=== PATIENT | female | born 1965 ===

== ENCOUNTER → 2025-02-01 14:28 | Outpatient (CLI) | payer OTHER, SELFPAY ==
--- NOTE | 2025-02-01 14:30 | DI.MG.S_ITS ---
MM screening mammo BI: 02/01/2025. BI-RADS: 1 CLINICAL: 59-year old female for bilateral screening mammogram. Tyrer-Cuzick lifetime risk of 25.1%. Current reported family history of breast cancer: mother, sister and second sister. PRIOR EXAMS Outside priors 01/31/2014, 12/28/2011, 03/21/2009, and 04/08/2007. MAMMOGRAPHY TECHNIQUE: 2D and 3D (tomosynthesis) digital mammographic views obtained, with additional images as needed for full coverage. Current study was also evaluated with a Computer Aided Detection (CAD) system. DENSITY C. The breasts are heterogeneously dense, which may obscure small masses. MAMMOGRAPHY FINDINGS Bilateral: No suspicious mass, asymmetry, microcalcification, or other abnormality seen. IMPRESSION: * No evidence of malignancy. RECOMMENDATIONS Bilateral * According to the Tyrer-Cuzick Risk Assessment Model, based on the information provided your patient has a greater than 20% lifetime risk for developing breast cancer. Consider supplemental screening with breast MRI and participation in a high risk screening program. * Annual screening mammography. OVERALL ASSESSMENT CATEGORY BI-RADS-1: Negative. The [employer] recommends annual screening mammography beginning at age 40 for women with average risk of breast cancer. ELECTRONICALLY SIGNED: Delmi Sanford M.D. on 02/02/2025 at 12:05:01 PM PT Interpreting Station ID: [id number]
== END ==
PROVIDERS: PCP Physician Assistant Medical; Referring Provider Physician Assistant Medical; Visit Provider Physician Assistant Medical
DX: Z12.31 Encounter for screening mammogram for malignant neoplasm of breast (principal); Z80.3 Family history of malignant neoplasm of breast; R92.333 Mammographic heterogeneous density, bilateral breasts
CPT/HCPCS: 77063; 77067

== ENCOUNTER → 2025-02-23 06:59 | Outpatient (CLI) | payer OTHER, SELFPAY ==
--- NOTE | 2025-02-23 07:00 | DI.US.S_ITS ---
PROCEDURE: US SOFT TISSUE HEAD AND NECK INDICATIONS: RIGHT POSTERIOR EAR MASS TECHNIQUE: Real-time scanning was performed of the neck region of interest, with image documentation. COMPARISON: None. FINDINGS: At the area of concern within the inferior aspect the parotid gland there is a 1.1 cm lymph node.. No other mass lesions are identified. IMPRESSION: Borderline enlarged lymph node, nonspecific. Dictated by: Anne Maldonado M.D. on 02/25/2025 at 19:43 Approved by: Anne Maldonado M.D. on 02/25/2025 at 19:44
== END ==
PROVIDERS: PCP Physician Assistant; Referring Provider Physician Assistant; Visit Provider Physician Assistant
DX: R22.0 Localized swelling, mass and lump, head (principal)
CPT/HCPCS: 76536

== ENCOUNTER → 2025-07-09 14:56 | Outpatient (CLI) | payer OTHER, SELFPAY | PROVIDERS: PCP Physician Assistant; Visit Provider Physician Assistant | DX: R35.0 Frequency of micturition (principal); R30.0 Dysuria; R82.90 Unspecified abnormal findings in urine | CPT/HCPCS: 87077; 87086; 87186 ==

== ENCOUNTER 2025-07-16 13:31 | Observation (INO) | payer OTHER, SELFPAY ==
[2025-07-16] VITALS (19 sets, daily range): BP systolic 98–142; BP diastolic 63–87; PULSE 73–103; RESP 12–32; TEMP 36.6–36.9; O2SAT 97–100; BMI 22.8
--- NOTE | 2025-07-16 | DI.CT.S_ITS ---
PROCEDURE: CT ANGIO HEAD AND NECK INDICATIONS: STROKE TECHNIQUE: After the administration of intravenous contrast, 1 mm thick sections acquired from the aortic arch through the [place] of [place]. 3-dimensional sekttnp-uzgqfoktx-fmmaqpkkus (MIP) and/or volume rendering reformats were acquired of the central intracranial vasculature and neck separately. For radiation dose reduction, the following was used: automated exposure control, adjustment of mA and/or kV according to patient size. COMPARISON: [facility], CT, CT STROKE, 07/16/2025, 13:59. FINDINGS: Image quality: Diagnostic. Cerebral CT Angiogram: Internal carotid arteries: No acute findings. Intracranial ICA are patent with no significant stenosis. No occlusion. No aneurysm. Anterior cerebral arteries: Unremarkable. No significant stenosis. No occlusion. No aneurysm. Middle cerebral arteries: Unremarkable. No significant stenosis. No occlusion. No aneurysm. Posterior cerebral arteries: Unremarkable. No significant stenosis. No occlusion. No aneurysm. Basilar artery: Unremarkable. No significant stenosis. No occlusion. No aneurysm. Vertebral arteries: Unremarkable as visualized. Dural venous sinuses: Unremarkable given phase of enhancement. Other: Please see the separately dictated report from the noncontrast CT of the head performed at the same time. No abnormal intracranial arterial-phase enhancement. Neck CT Angiogram: Internal carotid arteries: Unremarkable. No significant stenosis. No dissection or occlusion. Common carotid arteries: Unremarkable. No significant stenosis. No dissection or occlusion. External carotid arteries: Unremarkable. No occlusion. Vertebral arteries: Unremarkable. No significant stenosis. No dissection or occlusion. Aortic Arch and Mediastinum: Partially visualized aortic arch unremarkable without evidence of aneurysm. Origins of the great vessels unremarkable. Other: Heterogeneous enhancing right-sided thyroid nodule. IMPRESSION: No significant intracranial arterial abnormality is seen. No significant abnormality is seen within the arteries of the neck. Right thyroid nodule is indeterminate. Recommend follow-up outpatient thyroid ultrasound for further evaluation. Any quantitative measurements of stenosis were performed using NASCET criteria. Approved by: Chris Tellez M.D. on 07/16/2025 at 14:20
--- NOTE | 2025-07-16 | DI.CT.S_ITS ---
PROCEDURE: CT STROKE INDICATIONS: STROKE TECHNIQUE: Noncontrast 4.5 mm thick angled axial sections acquired from the foramen magnum to the vertex, with coronal reformats. For radiation dose reduction, the following was used: automated exposure control, adjustment of mA and/or kV according to patient size. COMPARISON: None. FINDINGS: Image quality: Diagnostic. CSF spaces: Basal cisterns are patent. No extra-axial fluid collections. Ventricles are normal in size and shape. Brain: No midline shift. No intracranial mass effect or hemorrhage. Munoz- white matter interface is normal. Skull and face: Calvarium and visualized facial bones are intact, without suspicious lesions. Sinuses: Visualized sinuses and mastoids are clear. IMPRESSION: No acute intracranial pathology. Findings were discussed with the referring provider, Dr. Mcgraw, by telephone on 07/16/2025 at 2:13 PM. This study fulfills neurological imaging criteria for inclusion or exclusion of acute stroke therapies based on available published neurological imaging guidelines. Approved by: Chris Tellez M.D. on 07/16/2025 at 14:14
--- NOTE | 2025-07-16 14:08 | EKG_ITS ---
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
--- NOTE | 2025-07-16 14:12 | ED_ITS ---
HPI - Neuro Symptoms/Deficit <Loraine Mcgraw DO - Last Filed: 07/17/25 07:36> General Chief Complaint: Neuro Symptoms/Deficit Stated Complaint: Numbness on left side, headache Time Seen by Provider: 07/16/25 14:10 Source: patient Mode of arrival: Ambulatory History of Present Illness On Anticoagulants: No Related Data Home Medications ?Medication ?Instructions ?Recorded ?Confirmed doxycycline hyclate 100 mg tablet 100 mg PO BID 07/16/25 nitrofurantoin 1 cap PO BID 07/16/25 monohydrate/macrocrystals 100 mg capsule Allergies Allergy/AdvReac Type Severity Reaction Status Date / Time erythromycin base Allergy Intermediate Hives Verified 07/16/25 22:30 nitrofurantoin AdvReac Intermediate Fatigued Verified 07/16/25 22:30 <Aydee Montanez PA-C - Last Filed: 07/16/25 16:56> History of Present Illness HPI Narrative: Ms. Small is a pleasant 60-year-old female with no reported past medical history who presents to the emergency department for concern of left-sided face/arm/leg tingling that started at 10:30 a.m. this morning. Patient actually had bilateral arm tingling that started on Wednesday of last week. Patient was started on Macrobid for UTI, took 4 doses in total, was then switched from Macrobid to doxycycline on Wednesday due to her concern that the tingling could be related to the antibiotic. Her bilateral arm tingling persisted however this morning and actually became more left-sided and she was also noticing some tingling on her face and her lower leg. She called EMS where she lives on [facility] and chose to go by POV on the [place]. States that she has a mild headache. Denies any visual disturbance, chest pain, shortness of breath, fevers, chills, flu-like symptoms, UTI symptoms are improving. She does not smoke. Reports that her father did have a stroke when he was 95 years old. Denies any daily medications. Review of Systems <Loraine Mcgraw DO - Last Filed: 07/17/25 07:36> Hematologic/Lymphatic On Anticoagulants: No <Aydee Montanez PA-C - Last Filed: 07/16/25 16:56> Review of Systems ROS Unobtainable: All systems reviewed & are unremarkable except as noted in HPI and below Patient History <Loraine Mcgraw DO - Last Filed: 07/17/25 07:36> Social History household members: none Smoking Status: Never smoker alcohol intake: current Smoking Status: Never smoker Exam <Loraine Mcgraw DO - Last Filed: 07/17/25 07:36> Initial Vital Signs Initial Vital Signs: Vital Signs Temperature 98 F 07/16/25 13:37 Pulse Rate 103 H 07/16/25 13:37 Respiratory Rate 18 07/16/25 13:37 Blood Pressure 140/77 07/16/25 13:37 Pulse Oximetry 100 07/16/25 13:37 Oxygen Delivery Method Room Air 07/16/25 13:37 <Aydee Montanez PA-C - Last Filed: 07/16/25 16:56> Narrative Exam Narrative: GENERAL: 60 year old patient appears stated age. Well-developed patient, in no acute distress. HEAD: Atraumatic. Normocephalic. EYES: PERRL. Extraocular motions intact. No scleral icterus. No injection or drainage. ENT: Clear ear canals and pearly mcdowell TMs bilaterally. Nose without bleeding, purulent drainage. Throat without erythema, tonsillar hypertrophy or exudate. Airway patent. NECK: Trachea midline. Cervical ROM intact. CARDIOVASCULAR: Regular rate and rhythm. RESPIRATORY: ?Nonlabored respirations. ?Speaking in clear, full sentences. ?Clear to auscultation. Breath sounds equal bilaterally. No wheezes, rales, or rhonchi. ? GASTROINTESTINAL: Abdomen soft, non-tender, nondistended. EXTREMITIES: No edema or joint tenderness. BACK: Nontender without deformity or crepitance. No flank tenderness. NEURO: AOx3. ?Clear speech. ?Moves all 4 extremities appropriately. No pronator drift. No asymmetry with facial movements. Patient reports decreased sensation to touch of the left jaw compared to the right jaw. Reports decreased sensation to touch of the posterior left knee compared to the right knee. She has a steady gait, normal [id number]. SKIN: No rash or erythema of visible areas. Initial Vital Signs Initial Vital Signs: Vital Signs Temperature 98 F 07/16/25 13:37 Pulse Rate 103 H 07/16/25 13:37 Respiratory Rate 18 07/16/25 13:37 Blood Pressure 140/77 07/16/25 13:37 Pulse Oximetry 100 07/16/25 13:37 Oxygen Delivery Method Room Air 07/16/25 13:37 <Meena Lozoya DO - Last Filed: 07/16/25 23:39> Initial Vital Signs Initial Vital Signs: Vital Signs Temperature 98 F 07/16/25 13:37 Pulse Rate 103 H 07/16/25 13:37 Respiratory Rate 18 07/16/25 13:37 Blood Pressure 140/77 07/16/25 13:37 Pulse Oximetry 100 07/16/25 13:37 Oxygen Delivery Method Room Air 07/16/25 13:37 Scores <Loraine Mcgraw DO - Last Filed: 07/17/25 07:36> NIH Stroke Scale Total NIH Stroke scale score: 1 <Aydee Montanez PA-C - Last Filed: 07/16/25 16:56> NIH Stroke Scale Level of Conciousness: Alert, keenly responsive Ask month/age: Answers both questions correctly. Open/close eyes, close hand: Performs both tasks correctly Best gaze horizontal: Normal Visual joya: No visual loss Facial palsy: Normal symetrical movement Left arm drift: No drift for full 10 sec Right arm drift: No drift for full 10 sec Left leg drift: No drift for full 5 sec Right leg drift: No drift for full 5 sec Limb ataxia: Absent Sensory on face/arms/legs: Mild to moderate sensory loss, can tell touch Best language: No aphasia, normal Dysarthria: Normal Extinction or inattention: No abnormality Total NIH Stroke scale score: 1 <Meena Lozoya DO - Last Filed: 07/16/25 23:39> NIH Stroke Scale Total NIH Stroke scale score: 1 Course <Loraine Mcgraw DO - Last Filed: 07/17/25 07:36> Orders Ordered: Acetaminophen (Acetaminophen 325 Mg Tablet) 650 mg PO Q6H PRN PRN Reason: Fever/Mild Pain (1-3) Aspirin (Aspirin Ec 81 Mg Tablet) 81 mg PO DAILY GABI Atorvastatin Calcium (Atorvastatin 20 Mg Tablet) 40 mg PO [facility]TIME [facility] Last Admin: 07/16/25 23:23 Dose: Not Given Documented By: AGW Naloxone HCl (Naloxone 0.4 Mg/Ml Vial) 0.2 mg IV Q2MIN PRN PRN Reason: Opiate Reversal Discontinued Medications Aspirin (Aspirin 81 Mg Chew Tab) 324 mg PO NOW ONE Stop: 07/16/25 15:42 Last Admin: 07/16/25 16:02 Dose: 324 mg Documented By: AZUL Vital Signs Vital signs: Vital Signs - 8 hr 07/16/25 16:00 07/16/25 16:00 Pulse Rate 85 Respiratory Rate 32 H Blood Pressure 131/87 <Aydee Montanez PA-C - Last Filed: 07/16/25 16:56> Orders Ordered: Acetaminophen (Acetaminophen 325 Mg Tablet) 650 mg PO Q6H PRN PRN Reason: Fever/Mild Pain (1-3) Aspirin (Aspirin Ec 81 Mg Tablet) 81 mg PO DAILY GABI Atorvastatin Calcium (Atorvastatin 20 Mg Tablet) 40 mg PO [facility]TIME [facility] Last Admin: 07/16/25 23:23 Dose: Not Given Documented By: DANIELLEW Naloxone HCl (Naloxone 0.4 Mg/Ml Vial) 0.2 mg IV Q2MIN PRN PRN Reason: Opiate Reversal Discontinued Medications Aspirin (Aspirin 81 Mg Chew Tab) 324 mg PO NOW ONE Stop: 07/16/25 15:42 Last Admin: 07/16/25 16:02 Dose: 324 mg Documented By: AZUL Vital Signs Vital signs: Vital Signs - 8 hr 07/16/25 16:00 07/16/25 16:00 Pulse Rate 85 Respiratory Rate 32 H Blood Pressure 131/87 <Meena Lozoya DO - Last Filed: 07/16/25 23:39> Orders Ordered: Acetaminophen (Acetaminophen 325 Mg Tablet) 650 mg PO Q6H PRN PRN Reason: Fever/Mild Pain (1-3) Aspirin (Aspirin Ec 81 Mg Tablet) 81 mg PO DAILY GABI Atorvastatin Calcium (Atorvastatin 20 Mg Tablet) 40 mg PO [facility]TIME [facility] Last Admin: 07/16/25 23:23 Dose: Not Given Documented By: DANIELLEW Naloxone HCl (Naloxone 0.4 Mg/Ml Vial) 0.2 mg IV Q2MIN PRN PRN Reason: Opiate Reversal Discontinued Medications Aspirin (Aspirin 81 Mg Chew Tab) 324 mg PO NOW ONE Stop: 07/16/25 15:42 Last Admin: 07/16/25 16:02 Dose: 324 mg Documented By: AZUL Vital Signs Vital signs: Vital Signs - 8 hr 07/16/25 16:00 07/16/25 16:00 Pulse Rate 85 Respiratory Rate 32 H Blood Pressure 131/87 MDM - Neuro Symptoms/Deficit <Loraine Mcgraw, DO - Last Filed: 07/17/25 07:36> Lab Data 07/16/25 13:48 07/17/25 04:30 Labs: Lab Results 07/16/25 07/16/25 07/16/25 Range/Units 13:48 13:51 15:01 WBC 8.3 (4.5-11.0) X10^3/uL RBC 4.96 (4.0-5.2) X10^6/uL Hgb 13.6 (12.0-16.0) g/dL Hct 40.8 (36-46) % MCV 82.3 (80-100) fL MCH 27.5 (26-34) PG MCHC 33.4 (30-36) % RDW 13.5 (11.6-14.8) % Plt Count 347 (150-400) X10^3/uL Neut % (Auto) 70.8 (50-75) % Lymph % (Auto) 22.4 L (25-40) % [place] % (Auto) 6.2 (3-14) % Eos % (Auto) 0.2 L (2-4) % Baso % (Auto) 0.4 (0-2) % Neut # (Auto) 5900 (3229-1991) /uL Lymph # (Auto) 1900 (9037-8437) /uL [place] # (Auto) 500 (0-900) /uL Eos # (Auto) 0 (0-450) /uL Baso # (Auto) 0 (0-100) /uL PT 10.7 (9.4-12.5) SECONDS INR 0.9 (0.9-1.3) APTT 38 H (25.1-36.5) SECONDS Sodium 139 (137-145) mmol/L Potassium 4.2 (3.4-5.1) mmol/L Chloride 104 (98-107) mmol/L Carbon Dioxide 25 (22-32) mmol/L BUN 12 (7-17) mg/dL Creatinine 0.71 (0.52-1.04) mg/dL Estimated GFR > 60 (>60) mL/min BUN/Creatinine Ratio 16.9 (6-22) Glucose 107 H (70-99) mg/dL POC Whole Bld Glucose 117 H (70-99) mg/dL Hemoglobin A1c 5.4 (4.0-6.0) % Calcium 9.9 (8.4-10.2) mg/dL Total Bilirubin 0.4 (0.2-1.3) mg/dL AST 37 H (14-36) IU/L ALT 18 (<35) IU/L Alkaline Phosphatase 93 (38-126) U/L Total Creatine Kinase 39 (30-135) U/L Troponin I < 0.012 (0.01-0.034) ng/mL Total Protein 9.0 H (6.3-8.2) g/dL Albumin 5.1 H (3.5-5.0) g/dL Globulin 3.9 (1.7-4.1) g/dL Albumin/Globulin Ratio 1.3 (1.0-2.8) Triglycerides 74 (35-150) mg/dL Cholesterol 237 H (140-199) mg/dL LDL Cholesterol, Calc 160 H (<100) mg/dL HDL Cholesterol 62 H (40-60) mg/dL Urine Color Yellow Urine Appearance Clear Urine pH 6.0 (4.5-8.0) Ur Specific [place] <=1.005 (1.000-1.035) Urine Protein Negative (Negative) Urine Glucose (UA) Negative (Negative) g/dL Urine Ketones Negative (NEGATIVE) Urine Occult Blood Trace-intact (Negative) Urine Nitrate Negative (Negative) Urine Bilirubin Negative (NEGATIVE) Urine Urobilinogen 0.2 (0.2) E.U./dL Ur Leukocyte Esterase Negative (NEGATIVE) Urine RBC 1-5/hpf (0-5/HPF) Urine WBC None seen (0-5/HPF) Ur Squamous Epith Cells None seen (0-5/HPF) Amorphous Sediment 1+ Urine Bacteria None seen (None) Ur Culture Indicated? Cult not indicated Vol Urine Centrifuged 10ml (spun) U Opiates 300ng/mL cut Negative (Negative) Ur Oxycodone Screen Negative (Negative) Urine Methadone Screen Negative (Negative) Ur Barbiturates Screen Negative (Negative) U Tricyclic Antidepress Negative (Negative) Ur Phencyclidine Scrn Negative (Negative) Ur Amphetamines Screen Negative (Negative) U Methamphetamines Scrn Negative (Negative) Ur MDMA Scrn (Ecstasy) Negative (Negative) U Benzodiazepines Scrn Negative (Negative) Urine Cocaine Screen Negative (Negative) U Marijuana (THC) Screen Negative (Negative) Urine Specific [place] (Normal) Ur Creatinine (Normal) 07/16/25 Range/Units 15:01 WBC (4.5-11.0) X10^3/uL RBC (4.0-5.2) X10^6/uL Hgb (12.0-16.0) g/dL Hct (36-46) % MCV (80-100) fL MCH (26-34) PG MCHC (30-36) % RDW (11.6-14.8) % Plt Count (150-400) X10^3/uL Neut % (Auto) (50-75) % Lymph % (Auto) (25-40) % [place] % (Auto) (3-14) % Eos % (Auto) (2-4) % Baso % (Auto) (0-2) % Neut # (Auto) (9795-6966) /uL Lymph # (Auto) (0329-5521) /uL [place] # (Auto) (0-900) /uL Eos # (Auto) (0-450) /uL Baso # (Auto) (0-100) /uL PT (9.4-12.5) SECONDS INR (0.9-1.3) APTT (25.1-36.5) SECONDS Sodium (137-145) mmol/L Potassium (3.4-5.1) mmol/L Chloride (98-107) mmol/L Carbon Dioxide (22-32) mmol/L BUN (7-17) mg/dL Creatinine (0.52-1.04) mg/dL Estimated GFR (>60) mL/min BUN/Creatinine Ratio (6-22) Glucose (70-99) mg/dL POC Whole Bld Glucose (70-99) mg/dL Hemoglobin A1c (4.0-6.0) % Calcium (8.4-10.2) mg/dL Total Bilirubin (0.2-1.3) mg/dL AST (14-36) IU/L ALT (<35) IU/L Alkaline Phosphatase (38-126) U/L Total Creatine Kinase (30-135) U/L Troponin I (0.01-0.034) ng/mL Total Protein (6.3-8.2) g/dL Albumin (3.5-5.0) g/dL Globulin (1.7-4.1) g/dL Albumin/Globulin Ratio (1.0-2.8) Triglycerides (35-150) mg/dL Cholesterol (140-199) mg/dL LDL Cholesterol, Calc (<100) mg/dL HDL Cholesterol (40-60) mg/dL Urine Color Urine Appearance Urine pH Normal (4.5-8.0) Ur Specific [place] (1.000-1.035) Urine Protein (Negative) Urine Glucose (UA) (Negative) g/dL Urine Ketones (NEGATIVE) Urine Occult Blood (Negative) Urine Nitrate (Negative) Urine Bilirubin (NEGATIVE) Urine Urobilinogen (0.2) E.U./dL Ur Leukocyte Esterase (NEGATIVE) Urine RBC (0-5/HPF) Urine WBC (0-5/HPF) Ur Squamous Epith Cells (0-5/HPF) Amorphous Sediment Urine Bacteria (None) Ur Culture Indicated? Vol Urine Centrifuged U Opiates 300ng/mL cut (Negative) Ur Oxycodone Screen (Negative) Urine Methadone Screen (Negative) Ur Barbiturates Screen (Negative) U Tricyclic Antidepress (Negative) Ur Phencyclidine Scrn (Negative) Ur Amphetamines Screen (Negative) U Methamphetamines Scrn (Negative) Ur MDMA Scrn (Ecstasy) (Negative) U Benzodiazepines Scrn (Negative) Urine Cocaine Screen (Negative) U Marijuana (THC) Screen (Negative) Urine Specific [place] Normal (Normal) Ur Creatinine Normal (Normal) <Aydee Montanez PA-C - Last Filed: 07/16/25 16:56> Medical Records Attestation: I reviewed the patient's medical records. Lab Data Labs: Lab Results 07/16/25 07/16/25 07/16/25 Range/Units 13:48 13:51 15:01 WBC 8.3 (4.5-11.0) X10^3/uL RBC 4.96 (4.0-5.2) X10^6/uL Hgb 13.6 (12.0-16.0) g/dL Hct 40.8 (36-46) % MCV 82.3 (80-100) fL MCH 27.5 (26-34) PG MCHC 33.4 (30-36) % RDW 13.5 (11.6-14.8) % Plt Count 347 (150-400) X10^3/uL Neut % (Auto) 70.8 (50-75) % Lymph % (Auto) 22.4 L (25-40) % [place] % (Auto) 6.2 (3-14) % Eos % (Auto) 0.2 L (2-4) % Baso % (Auto) 0.4 (0-2) % Neut # (Auto) 5900 (3951-5245) /uL Lymph # (Auto) 1900 (4195-4193) /uL [place] # (Auto) 500 (0-900) /uL Eos # (Auto) 0 (0-450) /uL Baso # (Auto) 0 (0-100) /uL PT 10.7 (9.4-12.5) SECONDS INR 0.9 (0.9-1.3) APTT 38 H (25.1-36.5) SECONDS Sodium 139 (137-145) mmol/L Potassium 4.2 (3.4-5.1) mmol/L Chloride 104 (98-107) mmol/L Carbon Dioxide 25 (22-32) mmol/L BUN 12 (7-17) mg/dL Creatinine 0.71 (0.52-1.04) mg/dL Estimated GFR > 60 (>60) mL/min BUN/Creatinine Ratio 16.9 (6-22) Glucose 107 H (70-99) mg/dL POC Whole Bld Glucose 117 H (70-99) mg/dL Hemoglobin A1c 5.4 (4.0-6.0) % Calcium 9.9 (8.4-10.2) mg/dL Total Bilirubin 0.4 (0.2-1.3) mg/dL AST 37 H (14-36) IU/L ALT 18 (<35) IU/L Alkaline Phosphatase 93 (38-126) U/L Total Creatine Kinase 39 (30-135) U/L Troponin I < 0.012 (0.01-0.034) ng/mL Total Protein 9.0 H (6.3-8.2) g/dL Albumin 5.1 H (3.5-5.0) g/dL Globulin 3.9 (1.7-4.1) g/dL Albumin/Globulin Ratio 1.3 (1.0-2.8) Triglycerides 74 (35-150) mg/dL Cholesterol 237 H (140-199) mg/dL LDL Cholesterol, Calc 160 H (<100) mg/dL HDL Cholesterol 62 H (40-60) mg/dL Urine Color Yellow Urine Appearance Clear Urine pH 6.0 (4.5-8.0) Ur Specific [place] <=1.005 (1.000-1.035) Urine Protein Negative (Negative) Urine Glucose (UA) Negative (Negative) g/dL Urine Ketones Negative (NEGATIVE) Urine Occult Blood Trace-intact (Negative) Urine Nitrate Negative (Negative) Urine Bilirubin Negative (NEGATIVE) Urine Urobilinogen 0.2 (0.2) E.U./dL Ur Leukocyte Esterase Negative (NEGATIVE) Urine RBC 1-5/hpf (0-5/HPF) Urine WBC None seen (0-5/HPF) Ur Squamous Epith Cells None seen (0-5/HPF) Amorphous Sediment 1+ Urine Bacteria None seen (None) Ur Culture Indicated? Cult not indicated Vol Urine Centrifuged 10ml (spun) U Opiates 300ng/mL cut Negative (Negative) Ur Oxycodone Screen Negative (Negative) Urine Methadone Screen Negative (Negative) Ur Barbiturates Screen Negative (Negative) U Tricyclic Antidepress Negative (Negative) Ur Phencyclidine Scrn Negative (Negative) Ur Amphetamines Screen Negative (Negative) U Methamphetamines Scrn Negative (Negative) Ur MDMA Scrn (Ecstasy) Negative (Negative) U Benzodiazepines Scrn Negative (Negative) Urine Cocaine Screen Negative (Negative) U Marijuana (THC) Screen Negative (Negative) Urine Specific [place] (Normal) Ur Creatinine (Normal) 07/16/ Range/Units 15:01 WBC (4.5-11.0) X10^3/uL RBC (4.0-5.2) X10^6/uL Hgb (12.0-16.0) g/dL Hct (36-46) % MCV (80-100) fL MCH (26-34) PG MCHC (30-36) % RDW (11.6-14.8) % Plt Count (150-400) X10^3/uL Neut % (Auto) (50-75) % Lymph % (Auto) (25-40) % [place] % (Auto) (3-14) % Eos % (Auto) (2-4) % Baso % (Auto) (0-2) % Neut # (Auto) (3710-6594) /uL Lymph # (Auto) (2656-9762) /uL [place] # (Auto) (0-900) /uL Eos # (Auto) (0-450) /uL Baso # (Auto) (0-100) /uL PT (9.4-12.5) SECONDS INR (0.9-1.3) APTT (25.1-36.5) SECONDS Sodium (137-145) mmol/L Potassium (3.4-5.1) mmol/L Chloride (98-107) mmol/L Carbon Dioxide (22-32) mmol/L BUN (7-17) mg/dL Creatinine (0.52-1.04) mg/dL Estimated GFR (>60) mL/min BUN/Creatinine Ratio (6-22) Glucose (70-99) mg/dL POC Whole Bld Glucose (70-99) mg/dL Hemoglobin A1c (4.0-6.0) % Calcium (8.4-10.2) mg/dL Total Bilirubin (0.2-1.3) mg/dL AST (14-36) IU/L ALT (<35) IU/L Alkaline Phosphatase (38-126) U/L Total Creatine Kinase (30-135) U/L Troponin I (0.01-0.034) ng/mL Total Protein (6.3-8.2) g/dL Albumin (3.5-5.0) g/dL Globulin (1.7-4.1) g/dL Albumin/Globulin Ratio (1.0-2.8) Triglycerides (35-150) mg/dL Cholesterol (140-199) mg/dL LDL Cholesterol, Calc (<100) mg/dL HDL Cholesterol (40-60) mg/dL Urine Color Urine Appearance Urine pH Normal (4.5-8.0) Ur Specific [place] (1.000-1.035) Urine Protein (Negative) Urine Glucose (UA) (Negative) g/dL Urine Ketones (NEGATIVE) Urine Occult Blood (Negative) Urine Nitrate (Negative) Urine Bilirubin (NEGATIVE) Urine Urobilinogen (0.2) E.U./dL Ur Leukocyte Esterase (NEGATIVE) Urine RBC (0-5/HPF) Urine WBC (0-5/HPF) Ur Squamous Epith Cells (0-5/HPF) Amorphous Sediment Urine Bacteria (None) Ur Culture Indicated? Vol Urine Centrifuged U Opiates 300ng/mL cut (Negative) Ur Oxycodone Screen (Negative) Urine Methadone Screen (Negative) Ur Barbiturates Screen (Negative) U Tricyclic Antidepress (Negative) Ur Phencyclidine Scrn (Negative) Ur Amphetamines Screen (Negative) U Methamphetamines Scrn (Negative) Ur MDMA Scrn (Ecstasy) (Negative) U Benzodiazepines Scrn (Negative) Urine Cocaine Screen (Negative) U Marijuana (THC) Screen (Negative) Urine Specific [place] Normal (Normal) Ur Creatinine Normal (Normal) [facility] Narrative Medical decision making narrative: 60-year-old female with no reported past medical history who presents to the emergency department for concern of left-sided face/arm/leg tingling that started at 10:30 a.m. this morning. Code stroke called however patient has been experiencing bilateral tingling x 6 days. At this current time she reports slight decreased sensation to palpation of left jaw, left lower extremity, and ?discomfort? of left arm. NIH stroke scale 1 point. Differential diagnosis includes but is not limited to electrolyte abnormality, neurologic deficit medication side effect, etc. On exam patient is in no acute distress, nontoxic appearing, vital signs appropriate except for mildly elevated heart rate. Case discussed immediately with the attending physician, Dr. Mcgraw, due to vague sensation changes NIH 1, patient not deemed candidate for TPA at this time. Patient has been experiencing multiple days of bilateral arm tingling and tingling of face and leg on the left side starting today. No reproducible weakness, no facial asymmetry, she is alert and keenly responsive, ambulatory with steady gait, no drift. Workup overall reassuring with a normal WBC count 8.3, hemoglobin 13.6 hematocrit 40.8. Platelets 347. Sodium 139, potassium 4.2, BUN 12 creatinine 0.71. Glucose 107. Troponin negative. EKG reveals normal sinus rhythm with a rate of 82 beats per minute, QTC 415. Stroke imaging, CT head and CTA head and neck negative for any acute abnormalities. And repeat evaluation of patient she reports that she is no longer experiencing any tingling in her face, but she continues to have posterior left leg and left arm tingling. She has received asprin. Repeat UA does not reveal persistent infection. After further discussion with the patient, we will plan to admit for further evaluation of possible stroke/TIA. PCP Mignon Tapia. Spoke with our hospitalist Dr. Jack who graciously accepts the patient for admission for further stroke workup, patient is aware and agreeable of plan. She is aware that we are currently boarding and she will remain in the ED until a bed is available. <Meena Lozoya, DO - Last Filed: 07/16/25 23:39> Lab Data Labs: Lab Results 07/16/25 07/16/25 07/16/25 Range/Units 13:48 13:51 15:01 WBC 8.3 (4.5-11.0) X10^3/uL RBC 4.96 (4.0-5.2) X10^6/uL Hgb 13.6 (12.0-16.0) g/dL Hct 40.8 (36-46) % MCV 82.3 (80-100) fL MCH 27.5 (26-34) PG MCHC 33.4 (30-36) % RDW 13.5 (11.6-14.8) % Plt Count 347 (150-400) X10^3/uL Neut % (Auto) 70.8 (50-75) % Lymph % (Auto) 22.4 L (25-40) % [place] % (Auto) 6.2 (3-14) % Eos % (Auto) 0.2 L (2-4) % Baso % (Auto) 0.4 (0-2) % Neut # (Auto) 5900 (7566-9294) /uL Lymph # (Auto) 1900 (7277-1792) /uL [place] # (Auto) 500 (0-900) /uL Eos # (Auto) 0 (0-450) /uL Baso # (Auto) 0 (0-100) /uL PT 10.7 (9.4-12.5) SECONDS INR 0.9 (0.9-1.3) APTT 38 H (25.1-36.5) SECONDS Sodium 139 (137-145) mmol/L Potassium 4.2 (3.4-5.1) mmol/L Chloride 104 (98-107) mmol/L Carbon Dioxide 25 (22-32) mmol/L BUN 12 (7-17) mg/dL Creatinine 0.71 (0.52-1.04) mg/dL Estimated GFR > 60 (>60) mL/min BUN/Creatinine Ratio 16.9 (6-22) Glucose 107 H (70-99) mg/dL POC Whole Bld Glucose 117 H (70-99) mg/dL Hemoglobin A1c 5.4 (4.0-6.0) % Calcium 9.9 (8.4-10.2) mg/dL Total Bilirubin 0.4 (0.2-1.3) mg/dL AST 37 H (14-36) IU/L ALT 18 (<35) IU/L Alkaline Phosphatase 93 (38-126) U/L Total Creatine Kinase 39 (30-135) U/L Troponin I < 0.012 (0.01-0.034) ng/mL Total Protein 9.0 H (6.3-8.2) g/dL Albumin 5.1 H (3.5-5.0) g/dL Globulin 3.9 (1.7-4.1) g/dL Albumin/Globulin Ratio 1.3 (1.0-2.8) Triglycerides 74 (35-150) mg/dL Cholesterol 237 H (140-199) mg/dL LDL Cholesterol, Calc 160 H (<100) mg/dL HDL Cholesterol 62 H (40-60) mg/dL Urine Color Yellow Urine Appearance Clear Urine pH 6.0 (4.5-8.0) Ur Specific [place] <=1.005 (1.000-1.035) Urine Protein Negative (Negative) Urine Glucose (UA) Negative (Negative) g/dL Urine Ketones Negative (NEGATIVE) Urine Occult Blood Trace-intact (Negative) Urine Nitrate Negative (Negative) Urine Bilirubin Negative (NEGATIVE) Urine Urobilinogen 0.2 (0.2) E.U./dL Ur Leukocyte Esterase Negative (NEGATIVE) Urine RBC 1-5/hpf (0-5/HPF) Urine WBC None seen (0-5/HPF) Ur Squamous Epith Cells None seen (0-5/HPF) Amorphous Sediment 1+ Urine Bacteria None seen (None) Ur Culture Indicated? Cult not indicated Vol Urine Centrifuged 10ml (spun) U Opiates 300ng/mL cut Negative (Negative) Ur Oxycodone Screen Negative (Negative) Urine Methadone Screen Negative (Negative) Ur Barbiturates Screen Negative (Negative) U Tricyclic Antidepress Negative (Negative) Ur Phencyclidine Scrn Negative (Negative) Ur Amphetamines Screen Negative (Negative) U Methamphetamines Scrn Negative (Negative) Ur MDMA Scrn (Ecstasy) Negative (Negative) U Benzodiazepines Scrn Negative (Negative) Urine Cocaine Screen Negative (Negative) U Marijuana (THC) Screen Negative (Negative) Urine Specific [place] (Normal) Ur Creatinine (Normal) 07/16/25 Range/Units 15:01 WBC (4.5-11.0) X10^3/uL RBC (4.0-5.2) X10^6/uL Hgb (12.0-16.0) g/dL Hct (36-46) % MCV (80-100) fL MCH (26-34) PG MCHC (30-36) % RDW (11.6-14.8) % Plt Count (150-400) X10^3/uL Neut % (Auto) (50-75) % Lymph % (Auto) (25-40) % [place] % (Auto) (3-14) % Eos % (Auto) (2-4) % Baso % (Auto) (0-2) % Neut # (Auto) (2410-7330) /uL Lymph # (Auto) (9840-4123) /uL [place] # (Auto) (0-900) /uL Eos # (Auto) (0-450) /uL Baso # (Auto) (0-100) /uL PT (9.4-12.5) SECONDS INR (0.9-1.3) APTT (25.1-36.5) SECONDS Sodium (137-145) mmol/L Potassium (3.4-5.1) mmol/L Chloride (98-107) mmol/L Carbon Dioxide (22-32) mmol/L BUN (7-17) mg/dL Creatinine (0.52-1.04) mg/dL Estimated GFR (>60) mL/min BUN/Creatinine Ratio (6-22) Glucose (70-99) mg/dL POC Whole Bld Glucose (70-99) mg/dL Hemoglobin A1c (4.0-6.0) % Calcium (8.4-10.2) mg/dL Total Bilirubin (0.2-1.3) mg/dL AST (14-36) IU/L ALT (<35) IU/L Alkaline Phosphatase (38-126) U/L Total Creatine Kinase (30-135) U/L Troponin I (0.01-0.034) ng/mL Total Protein (6.3-8.2) g/dL Albumin (3.5-5.0) g/dL Globulin (1.7-4.1) g/dL Albumin/Globulin Ratio (1.0-2.8) Triglycerides (35-150) mg/dL Cholesterol (140-199) mg/dL LDL Cholesterol, Calc (<100) mg/dL HDL Cholesterol (40-60) mg/dL Urine Color Urine Appearance Urine pH Normal (4.5-8.0) Ur Specific [place] (1.000-1.035) Urine Protein (Negative) Urine Glucose (UA) (Negative) g/dL Urine Ketones (NEGATIVE) Urine Occult Blood (Negative) Urine Nitrate (Negative) Urine Bilirubin (NEGATIVE) Urine Urobilinogen (0.2) E.U./dL Ur Leukocyte Esterase (NEGATIVE) Urine RBC (0-5/HPF) Urine WBC (0-5/HPF) Ur Squamous Epith Cells (0-5/HPF) Amorphous Sediment Urine Bacteria (None) Ur Culture Indicated? Vol Urine Centrifuged U Opiates 300ng/mL cut (Negative) Ur Oxycodone Screen (Negative) Urine Methadone Screen (Negative) Ur Barbiturates Screen (Negative) U Tricyclic Antidepress (Negative) Ur Phencyclidine Scrn (Negative) Ur Amphetamines Screen (Negative) U Methamphetamines Scrn (Negative) Ur MDMA Scrn (Ecstasy) (Negative) U Benzodiazepines Scrn (Negative) Urine Cocaine Screen (Negative) U Marijuana (THC) Screen (Negative) Urine Specific [place] Normal (Normal) Ur Creatinine Normal (Normal) Discharge Plan Departure Patient Disposition: Admitted as Observation Clinical Impression: Acute focal neurologic deficit with partial resolution, Thyroid nodule Admit Date/Time: 07/16/25 16:22 Admit Provider: Bertram Jack ED Sign-out <Loraine Mcgraw DO - Last Filed: 07/17/25 07:36> Cosign ED Attending Stuatr Attestation: I was immediately available in the department for consultation. Case was discussed with myself. Patient's labs, imaging and workup were reviewed. Plan for observation for possible TIA/stroke workup. Lucien-initially was available for consult but did not participate in care <Meena Lozoya DO - Last Filed: 07/16/25 23:39> Cosign ED Attending Cosignature Attestation: I was immediately available in the department for consultation. Case was discussed with myself. Patient's labs, imaging and workup were reviewed. Plan for observation for possible TIA/stroke workup.
[2025-07-16 14:23] LABS: INR 0.9 (0.9-1.3); Prothrombin Time 10.7 SECONDS (9.4-12.5)
[2025-07-16 14:25] LABS: Add Manual Diff / Slide Review NO; Hematocrit 40.8 % (36-46); Hemoglobin 13.6 g/dL (12.0-16.0); Lymphocytes Absolute Auto 1900 /uL (1100-4500); Mean Corpuscular HGB Conc 33.4 % (30-36); Mean Corpuscular Hemoglobin 27.5 PG (26-34); Mean Corpuscular Volume 82.3 fL (80-100); PTT Partial Thromboplastin Tim 38 SECONDS (25.1-36.5); Platelet Count 347 X10^3/uL (150-400)
[2025-07-16 14:32] LABS: Alanine Aminotransferase 18 IU/L (<35); Albumin 5.1 g/dL (3.5-5.0); Albumin Globulin Ratio 1.3 (1.0-2.8); Alkaline Phosphatase 93 U/L (38-126); Blood Urea Nitrogen 12 mg/dL (7-17); Calcium 9.9 mg/dL (8.4-10.2); Carbon Dioxide 25 mmol/L (22-32); Chloride 104 mmol/L (98-107); Creatine Kinase 39 U/L (30-135); Estimated Glomerular Filt Rate > 60 mL/min (>60); Globulin 3.9 g/dL (1.7-4.1); Glucose 107 mg/dL (70-99); HEMOLYSIS < 15 (0-50); Potassium 4.2 mmol/L (3.4-5.1); Sodium 139 mmol/L (137-145); Total Protein 9.0 g/dL (6.3-8.2)
[2025-07-16 14:43] LABS: Troponin I < 0.012 ng/mL (0.01-0.034)
[2025-07-16 15:23] LABS: Appearance Urine UA CLEAR; Bilirubin Urine UA NEGATIVE (NEGATIVE); Color Urine UA YELLOW; Glucose Urine UA NEGATIVE (Negative); Ketones Urine UA NEGATIVE (NEGATIVE); Leukocyte Esterase Urine UA NEGATIVE (NEGATIVE); Nitrite Urine UA NEGATIVE (Negative); Occult Blood Urine UA TRACE-INTACT (Negative); Protein Urine UA NEGATIVE (Negative); Specific Gravity Urine UA <=1.005 (1.000-1.035); Urobilinogen Urine UA 0.2 E.U./dL (0.2)
[2025-07-16 15:27] LABS: UR Morphine/Opiate cutoff 300 Negative (Negative); Ur Specific Gravity Normal (Normal); Urine Tetrahydrocannabinol Negative (Negative)
[2025-07-16 15:28] LABS: Urine MDMA Negative (Negative); Urine Methamphetamines Negative (Negative); Urine Tricyclic Antidepressant Negative (Negative)
[2025-07-16 15:36] LABS: pH Urine UA 6.0 (4.5-8.0)
[2025-07-16 15:37] LABS: Culture Indicated Urine Cult Not Indicated
[2025-07-16] MEDS: ASPIRIN 81 MG CHEW TAB 324 MG PO (16:02)
--- NOTE | 2025-07-16 16:36 | DI.MRI.S_ITS ---
PROCEDURE: MR HEAD/BRAIN WO CON INDICATIONS: TIA vs CVA TECHNIQUE: Noncontrast axial T1 spin echo, axial T2 fast spin echo, sagittal and axial FLAIR, coronal T2 fast spin echo, axial gradient echo, axial diffusion and ADC through the brain. COMPARISON: None. FINDINGS: Image quality: Excellent. CSF Spaces: Basal cisterns are patent. No extra-axial fluid collections. Ventricles are normal in size and shape. Brain: No intracranial masses or hemorrhage. Munoz/white matter interface is normal. Brainstem appears normal. Diffusion-weighted images demonstrate no acute infarct. No chronic ischemic insults. Normal intravascular flow voids are present. Skull and face: Calvarium has normal marrow signal. Orbits appear normal. Sinuses: Sinuses and mastoids are clear. IMPRESSION: No acute or subacute infarct. No acute intracranial abnormalities. Dictated by: Lukasz Baumann M.D. on 07/16/2025 at 19:44 Approved by: Lukasz Baumann M.D. on 07/16/2025 at 19:46
--- NOTE | 2025-07-16 16:36 | PM.HP.1 ---
History of Present Illness History of Present Illness Date Patient Seen: 07/16/25 Chief complaint: Numbness on left side, headache Narrative: Summary: Patient was a 60-year-old female with no medical history presents with left-sided face, arm, and leg tingling that began this morning. She was had some transient symptoms over the last week of tingling. She lives on [facility]. She had recently been prescribed Macrobid for a urinary tract infection, this is switch to doxycycline due to concerns that tingling might relate to that initial antibiotics. ED course: CTA head and neck and CT head negative. NIH 1, based on sensory symptoms. Subjective: She knows that she was otherwise very healthy. She was started taking Macrobid several days ago for a UTI, and developed a general feeling of being off. She also had sensations of being very weak and having some degree of tingling in both arms. She switched off the Macrobid after 4 doses and went to a 2nd antibiotic. She had some improvement but has some sensation of a residual tingling in the left side of her face, and leg. Possibly her arm has been involved. She denies any weakness, diplopia, or difficulty speaking. She has no history of hypertension, diabetes, hyperlipidemia, tobacco use. Her father did have 2 strokes. In the ED, NIH was 1. [facility] Social History Smoking Status: Never smoker Meds Home Medications and Allergies Allergies Allergy/AdvReac Type Severity Reaction Status Date / Time erythromycin base Allergy Unknown Verified 07/09/25 15:06 nitrofurantoin AdvReac Intermediate Fatigued Verified 07/11/25 18:49 Review of Systems Review of Systems Narrative: All else reviewed and otherwise unremarkable except as noted in the history and physical. Exam Vital Signs (past 8 hours): - 07/16/25 13:37 07/16/25 14:03 07/16/25 14:03 Temperature 98 F Pulse Rate 103 H 84 Respiratory Rate 18 14 Blood Pressure 140/77 129/72 Pulse Oximetry 100 100 Oxygen Delivery Method Room Air Room Air 07/16/25 14:30 07/16/25 14:30 07/16/25 14:58 Temperature Pulse Rate 85 86 Respiratory Rate 26 H 13 Blood Pressure 131/77 Pulse Oximetry 99 98 Oxygen Delivery Method Room Air 07/16/25 14:58 07/16/25 15:00 07/16/25 15:00 Temperature Pulse Rate 86 Respiratory Rate 25 H Blood Pressure 135/79 128/75 Pulse Oximetry 99 Oxygen Delivery Method Room Air 07/16/25 15:30 07/16/25 16:00 07/16/25 16:00 Temperature Pulse Rate 80 85 Respiratory Rate 32 H 32 H Blood Pressure 131/87 Pulse Oximetry 98 Oxygen Delivery Method Oxygen Delivery Method Room Air Narrative Exam Narrative: NAD, alert and oriented, fluent speech, calm. Normocephalic skull, EOMI, anicteric sclera, symmetric pupils. Oropharynx unremarkable, no droop. Neck supple, midline trachea, no adenopathy. Lungs clear, normal rate and effort. Heart regular, no murmur gallop or rub. Abdomen is soft, non distended and non tender. Extremities are free of edema. Skin is free of rash or lesions. Joints are not swollen or deformed. Judgment appears to be normal. Neuro: Cranial cranial nerves are intact, normal speech and judgment. Motor strength is 5/5 all extremities. Objective ECG Impression: ntervals [place] Rate: 82 P: 64 IA: 158 QRS: 50 QRSD: 72 T: 62 QT: 356 QTc: 415 Interpretive Statements Normal sinus rhythm Imaging Multiple studies: : Radiologist's impression: CTA head and neck: No significant intracranial arterial abnormality is seen. No significant abnormality is seen within the arteries of the neck. Right thyroid nodule is indeterminate. Recommend follow-up outpatient thyroid ultrasound for further evaluation. CTH: No acute intracranial pathology. Labs 07/16/25 13:48 07/16/25 13:48 Labs: Laboratory Results - last 24 hr 07/16/25 07/16/25 07/16/25 13:48 13:51 15:01 WBC 8.3 RBC 4.96 Hgb 13.6 Hct 40.8 MCV 82.3 MCH 27.5 MCHC 33.4 RDW 13.5 Plt Count 347 Neut % (Auto) 70.8 Lymph % (Auto) 22.4 L [place] % (Auto) 6.2 Eos % (Auto) 0.2 L Baso % (Auto) 0.4 Neut # (Auto) 5900 Lymph # (Auto) 1900 [place] # (Auto) 500 Eos # (Auto) 0 Baso # (Auto) 0 PT 10.7 INR 0.9 APTT 38 H Sodium 139 Potassium 4.2 Chloride 104 Carbon Dioxide 25 BUN 12 Creatinine 0.71 Estimated GFR > 60 BUN/Creatinine Ratio 16.9 Glucose 107 H POC Whole Bld Glucose 117 H Calcium 9.9 Total Bilirubin 0.4 AST 37 H ALT 18 Alkaline Phosphatase 93 Total Creatine Kinase 39 Troponin I < 0.012 Total Protein 9.0 H Albumin 5.1 H Globulin 3.9 Albumin/Globulin Ratio 1.3 Urine Color Yellow Urine Appearance Clear Urine pH 6.0 Ur Specific [place] <=1.005 Urine Protein Negative Urine Glucose (UA) Negative Urine Ketones Negative Urine Occult Blood Trace-intact Urine Nitrate Negative Urine Bilirubin Negative Urine Urobilinogen 0.2 Ur Leukocyte Esterase Negative Urine RBC 1-5/hpf Urine WBC None seen Ur Squamous Epith Cells None seen Amorphous Sediment 1+ Urine Bacteria None seen Ur Culture Indicated? Cult not indicated Vol Urine Centrifuged 10ml (spun) U Opiates 300ng/mL cut Negative Ur Oxycodone Screen Negative Urine Methadone Screen Negative Ur Barbiturates Screen Negative U Tricyclic Antidepress Negative Ur Phencyclidine Scrn Negative Ur Amphetamines Screen Negative U Methamphetamines Scrn Negative Ur MDMA Scrn (Ecstasy) Negative U Benzodiazepines Scrn Negative Urine Cocaine Screen Negative U Marijuana (THC) Screen Negative Urine Specific [place] Ur Creatinine 07/16/25 15:01 WBC RBC Hgb Hct MCV MCH MCHC RDW Plt Count Neut % (Auto) Lymph % (Auto) [place] % (Auto) Eos % (Auto) Baso % (Auto) Neut # (Auto) Lymph # (Auto) [place] # (Auto) Eos # (Auto) Baso # (Auto) PT INR APTT Sodium Potassium Chloride Carbon Dioxide BUN Creatinine Estimated GFR BUN/Creatinine Ratio Glucose POC Whole Bld Glucose Calcium Total Bilirubin AST ALT Alkaline Phosphatase Total Creatine Kinase Troponin I Total Protein Albumin Globulin Albumin/Globulin Ratio Urine Color Urine Appearance Urine pH Normal Ur Specific [place] Urine Protein Urine Glucose (UA) Urine Ketones Urine Occult Blood Urine Nitrate Urine Bilirubin Urine Urobilinogen Ur Leukocyte Esterase Urine RBC Urine WBC Ur Squamous Epith Cells Amorphous Sediment Urine Bacteria Ur Culture Indicated? Vol Urine Centrifuged U Opiates 300ng/mL cut Ur Oxycodone Screen Urine Methadone Screen Ur Barbiturates Screen U Tricyclic Antidepress Ur Phencyclidine Scrn Ur Amphetamines Screen U Methamphetamines Scrn Ur MDMA Scrn (Ecstasy) U Benzodiazepines Scrn Urine Cocaine Screen U Marijuana (THC) Screen Urine Specific [place] Normal Ur Creatinine Normal Assessment & Plan Assessment & Plan narrative: 1. TIA, active. 2. Recent UTI, improving. PLAN: -MR brain -PT/OT eval. -telemetry. Anticipate 1 midnight in the hospital, supports observation status. Full code. Time-Based Coding :: 35 min spent with patient and on the chart (including review of chart, obtaining history, exam, reviewing outside data, placing orders, documenting exam and treatment plan, and counseling patient) on 07/16. Quality MIPS - Admit The patient?s Advance Care plan is not present because I confirmed today that the patient does not wish or was not able to name a surrogate decision maker or provide an Advance Care Plan.: Yes MIPS - Meds 'Current medications' to include all prescriptions, mevc-rac-hucklri products, herbals, cannabis/cannabidiol products, and vitamin/mineral/dietary (nutritional) supplements. I have utilized all available resources to obtain, update, or review the patient?s current medications. [If Yes, STOP here]: Yes
[2025-07-16 16:58] LABS: Cholesterol 237 mg/dL (140-199); HDL Cholesterol 62 mg/dL (40-60); Triglycerides 74 mg/dL (35-150)
[2025-07-16 17:00] LABS: Hemoglobin A1C% w Est Avg Glu 5.4 % (4.0-6.0)
[2025-07-17 03:00] VITALS: BP 109/73; PULSE 75; RESP 18; TEMP 36.6; O2SAT 99
[2025-07-17 04:52] LABS: Blood Urea Nitrogen 12 mg/dL (7-17); Calcium 9.9 mg/dL (8.4-10.2); Carbon Dioxide 30 mmol/L (22-32); Chloride 104 mmol/L (98-107); Estimated Glomerular Filt Rate > 60 mL/min (>60); Glucose 96 mg/dL (70-99); HEMOLYSIS < 15 (0-50); Potassium 4.4 mmol/L (3.4-5.1); Sodium 139 mmol/L (137-145)
[2025-07-17 08:00] VITALS: BP 106/74; PULSE 81; RESP 16; TEMP 36.8; O2SAT 99
[2025-07-17] MEDS: ASPIRIN EC 81 MG TABLET PO (08:41)
--- NOTE | 2025-07-17 08:53 | DI.ECHO.S_ITS ---
[facility] +---------+ Hospital : : [id number] : : [place] : : [id number] : : Phone: [phone] Echocardiogram Report + + :Name: GER JETER Study Date: 07/17/2025 Height: 67 in : :[facility] ReadingLocation: Weight: 146 lb : : Gender: Female BSA: 1.8 m2 : :: 1965 Age: 60 yrs BP: 106/74 mmHg: :Reason For Study: TIA : :Ordering Physician: DAVID, : :MADISON Mast Performed By: Juan R Mcfarland : :Referring: MADISON HERNANDEZ : + + Interpretation Summary The ejection fraction is estimated to be 60-65%. Injection of contrast documented no interatrial shunt. There is no significant valvular heart disease. Procedure: A two-dimensional transthoracic echocardiogram with color flow and Doppler was performed. A saline contrast injection was performed to assess for cardiac shunting. The study quality was technically adequate. There is no prior echocardiogram noted for this patient. The patient was in normal sinus rhythm during the exam. Left Ventricle: The left ventricle is normal in size. There is normal left ventricular wall thickness. There is no ventricular septal defect visualized. The ejection fraction is estimated to be 60-65%. There are no focal wall motion abnormalities. Diastolic parameters suggest a relaxation abnormality of the left ventricle, consistent with probable normal filling pressures. Right Ventricle: The right ventricle is normal in size and function. Atria: The left atrial size is normal. Right atrial size is normal. There is no Doppler evidence for an interatrial shunt. Injection of contrast documented no interatrial shunt. Mitral Valve: The mitral valve leaflets appear normal. There is no evidence of stenosis, fluttering, or prolapse. There is no mitral regurgitation noted. Aortic Valve: The aortic valve is grossly normal. No aortic regurgitation is present. Tricuspid Valve: The tricuspid valve leaflets are thin and pliable. No tricuspid regurgitation. Pulmonic Valve: The pulmonic valve is not well visualized. Great Vessels: The aortic root is mildly dilated. The dimensions of the ascending aorta are normal. The pulmonary is not well visualized. The IVC is of normal diameter and collapses greater than 50% with a sniff. This suggests a low right atrial pressure of 3 mm Hg. Pericardium/ Pleura There is no pericardial effusion. There is no pleural effusion. MMode/2D Measurements & Calculations LVIDd: 3.9 cm LVOT diam: 1.9 cm LVIDs: 2.7 cm Ao root diam: 3.7 cm FS: 30.7 % Ao Arch Diam (Prox Trans): 1.7 cm EPSS: 0.86 cm IVSd: 1.0 cm LVPWd: 1.0 cm LV arana. diameter/BSA (cm/m^2): 2.2 LV sys. diameter/BSA (cm/m^2): 1.5 LA A2 area: 13.9 cm2 RA long axis: 3.7 cm LA A4 area: 13.6 cm2 RA area: 9.7 cm2 LA length (vol): 4.9 cm RA vol: 21.5 ml LA vol: 33.0 ml RA : 12.1 ml/m2 LA vol index: 18.6 ml/m2 IVC diam: 1.8 cm RVD1 (basal): 3.1 cm RVD2 (mid): 2.4 cm TAPSE: 2.2 cm Doppler Measurements & Calculations Ao V2 max: 118.6 cm/sec LVOT Max Darrin: 102.0 cm/sec Ao V2 mean: 86.5 cm/sec LV V1 max P.2 mmHg Ao max P.6 mmHg LV V1 VTI: 21.1 cm Ao mean P.3 mmHg HANDY(I,D): 2.4 cm2 Ao V2 VTI: 24.0 cm HANDY(V,D): 2.4 cm2 sev ratio: 0.88 HANDY indexed to BSA (cm^2/m^2): 1.4 MV E max darrin: 57.5 cm/sec SV(LVOT): 58.0 ml MV A max darrin: 64.8 cm/sec MV E/A: 0.89 Med Peak E' Darrin: 7.6 cm/sec E/E' med: 7.5 Lat Peak E' Darrin: 11.6 cm/sec E/E' lat: 5.0 E/e' average: 6.2 MV dec time: 0.20 sec Reading Physician:12:32 PM
--- NOTE | 2025-07-17 09:35 | OT.IPNOTE ---
Touched base with pt for OT eval and pt states feels pretty much at her baseline with just slight numbness in left hand. Pt states has been independent in the room and therefore discharge OT eval orders.
--- NOTE | 2025-07-17 10:06 | SLP.IPNOTE ---
Chart reviewed and RN consulted. RN reported pt seems back to baseline with no concerns at this time. Pt denied changes to swallowing, speech, language, or cognitive-communication function. RADIO DISPATCHER services not warranted at this time. Please re-consult if changes are noted during reminder of hospital stay.
--- NOTE | 2025-07-17 10:50 | CM.DANOTE ---
Initial DCP Assessment Visit Note Reviewed EMR and team rounds for pt's medical status and updates. Met with pt at bedside to introduce self and role, pt was found to be alert/oriented, dressed, and waiting for her ECHO procedure. Pt resides independently in her own home on [facility]. Her friend brought pt's car to the hospital and she will plan to drive herself home once the ECHO has been read. PHILOSOPHY INSTRUCTOR provided a medical priority boarding pass for her return home. No further CM d/c needs are identified at this time. Payor: Vicki PCP: Mignon Tapia Pt is a 60 year-old F who presented to the ED with c/o L-sided facial/arm/leg numbness and tingling. She had noticed some intermittent tingling in her arms the week before , and had also just started taking antibiotics for a UTI. CT head/neck were negative for abnormalities, however her left leg and left arm tingling was persistent. Plan was made to admit to OBS for further stroke workup, ECHO, and brain MRI. DCP will continue to monitor for any further evolving needs prior to her departure. Discharge Planning/Care Management CM Discharge Assessment Start: 07/16/25 21:15 Freq: Status: Active Protocol: Document 07/17/25 10:48 DPL (Rec: 07/17/25 10:49 DPL [id number]) Discharge Planning Assessment Assigned Discharge ALEXEI Farrell Equipment Service Engineer Insurance Vicki Advance Directives? No History Provided By Patient,Medical Record Has Patient been No admitted in last 30 days? Prior Living House Arrangements Household Members none Type of Drives own vehicle transporation used prior to admit Independent with ADL Yes 's Is patient alert and Yes oriented? Caregiver for No Another Comment N/A Comment N/A Barriers to No Discharge Discharge Plan Home Referrals Initiated None needed Whiteboard Updated Yes in Patient Room with name and ext. # of Professor Of Floriculture Review Status In Process Please Provide Date 07/17/25 Initial DC Assessment Was Performed
--- NOTE | 2025-07-17 12:39 | P.DS_ITS ---
History of Present Illness History of Present Illness Chief complaint: Numbness on left side, headache Narrative: Summary: Patient was a 60-year-old female with no medical history presents with left-sided face, arm, and leg tingling that began this morning. She was had some transient symptoms over the last week of tingling. She lives on [facility]. She had recently been prescribed Macrobid for a urinary tract infection, this is switch to doxycycline due to concerns that tingling might relate to that initial antibiotics. ED course: CTA head and neck and CT head negative. NIH 1, based on sensory symptoms. Subjective: She knows that she was otherwise very healthy. She was started taking Macrobid several days ago for a UTI, and developed a general feeling of being off. She also had sensations of being very weak and having some degree of tingling in both arms. She switched off the Macrobid after 4 doses and went to a 2nd antibiotic. She had some improvement but has some sensation of a residual tingling in the left side of her face, and leg. Possibly her arm has been involved. She denies any weakness, diplopia, or difficulty speaking. She has no history of hypertension, diabetes, hyperlipidemia, tobacco use. Her father did have 2 strokes. In the ED, NIH was 1. Discharge Providers Provider Date of admission: 07/16/25 16:22 Discharge Date: 07/17/25 Primary care physician: Mignon Tapia PA-C Consults: 07/16/25 16:35 Consult to Discharge Planning Routine Comment: Consult to Occupational Therapy Evaluate & Treat Comment: Physician Instructions: Evaluate and treat Consult to Physical Therapy Evaluate & Treat Comment: Physician Instructions: Evaluate and Treat Consult to Speech Therapy Evaluate & Treat Comment: Physician Instructions: Evaluate and treat Discharge provider: Bertram Jack MD Summary Hospital Course Discharge Diagnosis: 1. Transient left body numbness, active. 2. Recent UTI, improving. Hospital Course: She was admitted with transient numbness of the face and leg and possibly the arm that was going on and off over the previous several days. She had a Macrobid which she took 4 doses of. She had no other neurologic symptoms or findings. She was given aspirin and atorvastatin and evaluated with the imaging studies below. All imaging was normal, and her symptoms improved. It was hard to attribute this to a clear-cut TIA, however aspirin and atorvastatin were recommended based on the low risk of aspirin and her lipid profile which was notable for significant hyperlipidemia. She was asked to call 911 for recurrent neurologic symptoms and see her primary care within the next week to further discuss aspirin atorvastatin. Status at Discharge Cognitive/behavioral status at discharge: oriented Functional status at discharge: independent ambulation Overall status at discharge: patient is back to baseline Time Spent with Patient Time spent: Greater than 30 minutes Exam Vital Signs (past 8 hours): - 07/17/25 08:00 Temperature 98.2 F Pulse Rate 81 Respiratory Rate 16 Blood Pressure 106/74 Pulse Oximetry 99 Oxygen Delivery Method Room Air Oxygen Flow Rate 0 Narrative Exam Narrative: NAD, alert and oriented. Fluent speech. Lungs are clear, normal rate and effort. Heart is regular, no murmur gallop or rub. Abdomen is soft, non distended. Extremities are free of edema. Neuro: normal cranial nerves, normal motor strength arms and legs. Objective ECG Impression: Intervals [place] Rate: 82 P: 64 MA: 158 QRS: 50 QRSD: 72 T: 62 QT: 356 QTc: 415 Interpretive Statements Normal sinus rhythm Imaging Multiple studies: : Radiologist's impression: Echo: The ejection fraction is estimated to be 60-65%. Injection of contrast documented no interatrial shunt. There is no significant valvular heart disease. Brain MRI: No acute or subacute infarct. No acute intracranial abnormalities. Head and neck CTA: No significant intracranial arterial abnormality is seen. No significant abnormality is seen within the arteries of the neck. Right thyroid nodule is indeterminate. Recommend follow-up outpatient thyroid ultrasound for further evaluation. Head CT: No acute intracranial pathology. Labs 07/16/25 13:48 07/17/25 04:30 Labs: Laboratory Results - last 24 hr 07/16/25 07/16/25 07/16/25 13:48 13:51 15:01 WBC 8.3 RBC 4.96 Hgb 13.6 Hct 40.8 MCV 82.3 MCH 27.5 MCHC 33.4 RDW 13.5 Plt Count 347 Neut % (Auto) 70.8 Lymph % (Auto) 22.4 L [place] % (Auto) 6.2 Eos % (Auto) 0.2 L Baso % (Auto) 0.4 Neut # (Auto) 5900 Lymph # (Auto) 1900 [place] # (Auto) 500 Eos # (Auto) 0 Baso # (Auto) 0 PT 10.7 INR 0.9 APTT 38 H Sodium 139 Potassium 4.2 Chloride 104 Carbon Dioxide 25 BUN 12 Creatinine 0.71 Estimated GFR > 60 BUN/Creatinine Ratio 16.9 Glucose 107 H POC Whole Bld Glucose 117 H Hemoglobin A1c 5.4 Calcium 9.9 Total Bilirubin 0.4 AST 37 H ALT 18 Alkaline Phosphatase 93 Total Creatine Kinase 39 Troponin I < 0.012 Total Protein 9.0 H Albumin 5.1 H Globulin 3.9 Albumin/Globulin Ratio 1.3 Triglycerides 74 Cholesterol 237 H LDL Cholesterol, Calc 160 H HDL Cholesterol 62 H Urine Color Yellow Urine Appearance Clear Urine pH 6.0 Ur Specific [place] <=1.005 Urine Protein Negative Urine Glucose (UA) Negative Urine Ketones Negative Urine Occult Blood Trace-intact Urine Nitrate Negative Urine Bilirubin Negative Urine Urobilinogen 0.2 Ur Leukocyte Esterase Negative Urine RBC 1-5/hpf Urine WBC None seen Ur Squamous Epith Cells None seen Amorphous Sediment 1+ Urine Bacteria None seen Ur Culture Indicated? Cult not indicated Vol Urine Centrifuged 10ml (spun) U Opiates 300ng/mL cut Negative Ur Oxycodone Screen Negative Urine Methadone Screen Negative Ur Barbiturates Screen Negative U Tricyclic Antidepress Negative Ur Phencyclidine Scrn Negative Ur Amphetamines Screen Negative U Methamphetamines Scrn Negative Ur MDMA Scrn (Ecstasy) Negative U Benzodiazepines Scrn Negative Urine Cocaine Screen Negative U Marijuana (THC) Screen Negative Urine Specific [place] Ur Creatinine 07/16/25 07/17/25 15:01 04:30 WBC RBC Hgb Hct MCV MCH MCHC RDW Plt Count Neut % (Auto) Lymph % (Auto) [place] % (Auto) Eos % (Auto) Baso % (Auto) Neut # (Auto) Lymph # (Auto) [place] # (Auto) Eos # (Auto) Baso # (Auto) PT INR APTT Sodium 139 Potassium 4.4 Chloride 104 Carbon Dioxide 30 BUN 12 Creatinine 0.74 Estimated GFR > 60 BUN/Creatinine Ratio 16.2 Glucose 96 POC Whole Bld Glucose Hemoglobin A1c Calcium 9.9 Total Bilirubin AST ALT Alkaline Phosphatase Total Creatine Kinase Troponin I Total Protein Albumin Globulin Albumin/Globulin Ratio Triglycerides Cholesterol LDL Cholesterol, Calc HDL Cholesterol Urine Color Urine Appearance Urine pH Normal Ur Specific [place] Urine Protein Urine Glucose (UA) Urine Ketones Urine Occult Blood Urine Nitrate Urine Bilirubin Urine Urobilinogen Ur Leukocyte Esterase Urine RBC Urine WBC Ur Squamous Epith Cells Amorphous Sediment Urine Bacteria Ur Culture Indicated? Vol Urine Centrifuged U Opiates 300ng/mL cut Ur Oxycodone Screen Urine Methadone Screen Ur Barbiturates Screen U Tricyclic Antidepress Ur Phencyclidine Scrn Ur Amphetamines Screen U Methamphetamines Scrn Ur MDMA Scrn (Ecstasy) U Benzodiazepines Scrn Urine Cocaine Screen U Marijuana (THC) Screen Urine Specific [place] Normal Ur Creatinine Normal PFSH Social History household members: none Smoking Status: Never smoker alcohol intake: current Discharge Assessment & Plan Assessment and Plan Assessment: 1. Transient left body numbness, resolved. 2. Hyperlipidemia, active. 3. Resolved urinary tract infection, stable. Plan of Treatment: Recommend baby aspirin and atorvastatin, with close follow up with PCP and further discussions regarding medical therapy. 911 for acute neurologic symptoms. Discharge Plan Discharge Plan Patient Disposition: Home Provider Discharge Comment: Stable for discharge, no medication changes. Discharge orders & Medications Prescriptions: New atorvastatin 20 mg Tablet 40 mg PO BEDTIME Qty: 30 2RF aspirin 81 mg Tablet,Delayed Release (Dr/Ec) 81 mg PO DAILY Qty: 30 2RF Discontinued doxycycline hyclate 100 mg tablet 100 mg PO BID nitrofurantoin monohyd/m-cryst 100 mg capsule 1 cap PO BID Medication counseling provided by Pharmacist: No Follow up/Referrals: Mignon Tapia PA-C [Primary Care Provider, Medical] Diet/Activity/Treatments Diet: Low-cholesterol Visit Report/Discharge Packet Stand Alone Forms: Patient Portal/API, Stroke Signs & Symptoms Discharge Data Primary Care Provider: Mignon Tapia Attending Provider: Bertram Jack Admit Date/Time: 07/16/25 16:22
--- NOTE | 2025-07-17 12:44 | PT-IP ANOTE ---
PT eval order received. EMR reviewed. checked on pt and pt refused PT. pt stated that she is moving around independently in room and does not think she needs any PT. pt stated that she feels back to normal. will d/c PT eval order.
== END 2025-07-17 13:30 | disposition home or self-care (01) ==
LOC: ED 15:37 → AC 16:22
PROVIDERS: Emergency Medicine; Admitting Provider Hospitalist; Emergency Provider Physician Assistant; PCP Physician Assistant; Referring Provider Physician Assistant; Visit Provider Hospitalist
DX: R29.818 Other symptoms and signs involving the nervous system (principal); R20.0 Anesthesia of skin; R51.9 Headache, unspecified; N39.0 Urinary tract infection, site not specified; E78.5 Hyperlipidemia, unspecified; R29.701 NIHSS score 1
CPT/HCPCS: 36415; 70450; 70496; 70498; 70551; 80048; 80053; 80061; 80305; 81001; 82550; 82962; 83036; 84484; 85025; 85610; 85730; 93005; 93010; 93306; 99285; G0378; Q9967

== ENCOUNTER 2025-07-29 10:29 | Emergency (ER) | payer OTHER, SELFPAY ==
[2025-07-16 21:15] VITALS: BMI 22.8
[2025-07-29 10:44] VITALS: PULSE 96; RESP 17; O2SAT 99
[2025-07-29 10:48] VITALS: BP 149/72; PULSE 101; RESP 18; TEMP 36.4; O2SAT 97; BMI 22.5
[2025-07-29 11:00] VITALS: PULSE 94; RESP 16; O2SAT 98
--- NOTE | 2025-07-29 11:08 | ED.NEUROSD ---
HPI - Neuro Symptoms/Deficit General Chief Complaint: Neuro Symptoms/Deficit Stated Complaint: ER Return 12days ago: LT leg numbness, worsening Time Seen by Provider: 07/29/25 10:48 Source: patient Mode of arrival: Ambulatory History of Present Illness HPI Narrative: Patient is a 60-year-old female with recent evaluation for concern of TIA presenting with left leg sensory changes and sense of heaviness. Patient states that she had initially had left arm leg and facial symptoms approximately 12 days prior. She was seen and evaluated with overall reassuring workup including negative MRI imaging. She had significant resolution of her symptoms and was initiated on aspirin and atorvastatin, she states that she has not been taking the atorvastatin due to her concern for side effects and similarly has only been taking the aspirin every other day. Patient has not yet been seen by her primary care provider. States that she felt that the leg heaviness worsened again on the day prior to presentation. She denies any trauma to the area, no weakness, gait instability, sensation changes, urinary symptoms. On Anticoagulants: No Related Data Previous Rx's ?Medication ?Instructions ?Recorded aspirin 81 mg tablet,delayed 81 mg PO DAILY #30 tabs 07/17/25 release atorvastatin 20 mg tablet 40 mg (2 x 20 mg) PO BEDTIME #30 07/17/25 tabs Allergies Allergy/AdvReac Type Severity Reaction Status Date / Time erythromycin base Allergy Intermediate Hives Verified 07/29/25 10:48 nitrofurantoin AdvReac Intermediate Fatigued Verified 07/29/25 10:48 Review of Systems Review of Systems ROS Unobtainable: All systems reviewed & are unremarkable except as noted in HPI and below Constitutional Constitutional: Denies fever(s), Denies frequent falls and Denies headache(s) Eyes Eyes: Denies change in vision ENT Ears, Nose, Mouth, and Throat: Denies headache(s) Cardiovascular Cardiovascular: Denies chest pain, Denies syncope and Denies dyspnea Respiratory Respiratory: Denies dyspnea Genitourinary Genitourinary: Denies dysuria and Denies urinary incontinence Musculoskeletal Musculoskeletal: Denies abnormal gait, Denies back pain, Denies muscle weakness and Reports numbness Neurologic Neurologic: Denies abnormal gait, Denies syncope, Denies frequent falls, Denies headache(s) and Reports numbness Hematologic/Lymphatic On Anticoagulants: No Patient History Social History household members: none Smoking Status: Never smoker alcohol intake: current Smoking Status: Never smoker Exam Narrative Exam Narrative: GENERAL: in no distress, not toxic not dyspneic HEAD: Normocephalic. EYES: Pupils equal round ENT: Mucous membranes moist. NECK: Trachea midline. CARDIOVASCULAR: Regular rate and rhythm RESPIRATORY: Clear to auscultation. Breath sounds equal bilaterally. No wheezes, rales, or rhonchi. GASTROINTESTINAL: Abdomen soft, non-tender EXTREMITIES: No gross deformities. BACK: No flank tenderness. NEURO: AOx4. Clear speech SKIN: Warm and dry PSYCH: Not anxious, is cooperative Initial Vital Signs Initial Vital Signs: Vital Signs Pulse Rate 96 H 07/29/25 10:44 Respiratory Rate 17 07/29/25 10:44 Pulse Oximetry 99 07/29/25 10:44 Course Vital Signs Vital signs: Vital Signs - 8 hr 07/29/25 10:48 Temperature 97.5 F L Pulse Rate 101 H Respiratory Rate 18 Blood Pressure 149/72 H Pulse Oximetry 97 Oxygen Delivery Method Room Air MDM - Neuro Symptoms/Deficit Differential Diagnosis Differential diagnosis: Likely peripheral neuropathy, transient cerebral ischemia and other (Radiculopathy, sciatica, musculoskeletal strain) Medical Records Attestation: I reviewed the patient's medical records. MDM Narrative Medical decision making narrative: History and exam as above. Overall presentation inconsistent with focal neurological deficit, unlikely to represent CVA or TIA based on distribution and recent reassuring evaluation. Notably, patient does state that she has been in compliant with aspirin or atorvastatin. Strength intact and patient has been ambulating without instability. Low suspicion for acute spinal pathology and without focal midline tenderness, fall, deformity to suggest compression fracture or acute traumatic hip injury. Discharge Plan Departure Patient Disposition: Home Clinical Impression: Heavy sensation of lower extremity Instructions: DI for Transient Ischemic Attack Activity Restrictions/Additional Instructions: You were seen in the emergency department for your leg sensation changes and heaviness. Evaluation here included examination and review of your prior workups. We are overall reassured and do not suspect that this is in the setting of a stroke or blood clot at this time. We do recommend that you take your aspirin and atorvastatin as prescribed in order to minimize risk for possible TIA or stroke. It is also important that you follow up closely with your primary care provider for further evaluation and management in the outpatient setting. If you develop worsening symptoms such as weakness, gait instability, loss of sensation in the extremity, slurred speech, urinary incontinence, or other symptoms that are concerning to you, please return to the emergency department for further evaluation. Prescriptions: No Action atorvastatin 20 mg Tablet 40 mg PO BEDTIME Qty: 30 2RF aspirin 81 mg Tablet,Delayed Release (Dr/Ec) 81 mg PO DAILY Qty: 30 2RF Referrals: Mignon Tapia PA-C [Primary Care Provider, Medical] Stand Alone Forms: Patient Portal/API
== END 2025-07-29 11:22 | disposition home or self-care (01) ==
PROVIDERS: Emergency Provider Student in an Organized Health Care Education/Training Program; PCP Physician Assistant
DX: R44.8 Other symptoms and signs involving general sensations and perceptions (principal)
CPT/HCPCS: 99281

== ENCOUNTER → 2025-08-20 12:42 | Outpatient (CLI) | payer OTHER, SELFPAY ==
[2025-07-16 21:15] VITALS: BMI 22.8
--- NOTE | 2025-08-20 12:43 | DI.MRI.S_ITS ---
MR breast BI wo/w con: 08/20/2025. BI-RADS: 1 CLINICAL: 60-year old female for bilateral diagnostic breast MRI. Current reported family history of breast cancer: mother, sister and second sister. PRIOR EXAMS: Mammogram(s): 02/01/2025. Breast MRI Exam(s): 01/27/2012. MRI TECHNIQUE: Bilateral breast MRI was performed on a 1.5 Nelly magnet using a dedicated breast coil with mild compression. Axial T1 and T2 STIR sequences were obtained. Dynamic contrast enhanced VIBRANT fat-suppressed sequences were obtained. Delayed sagittal high resolution or sagittal reconstructed isotropic sequence was also obtained. Subtraction images and maximum intensity projection images were obtained. The study was evaluated using [employer] software. IV Contrast: 20 ml ProHance. FIBROGLANDULAR TISSUE Bilateral: D. Extreme fibroglandular tissue. BACKGROUND PARENCHYMAL ENHANCEMENT Bilateral: Mild symmetrical background parenchymal enhancement. BREAST FINDINGS Bilateral: No suspicious mass, suspicious non-mass enhancement, or other concerning finding identified. CHEST FINDINGS No axillary or internal mammary chain adenopathy. No abnormality seen in the visible portions of the heart, lungs, chest wall, and liver. IMPRESSION: * No evidence of malignancy. RECOMMENDATIONS Bilateral * In addition, this patient has an elevated lifetime risk for breast cancer of over 20%. Recommend consideration for annual screening breast MRI as an adjunct to screening mammography. This is to be offset by approximately 6 months from patient's mammogram. . * Annual screening mammography in one year. OVERALL ASSESSMENT CATEGORY BI-RADS-1: Negative. ELECTRONICALLY SIGNED: Delmi Sanford M.D. on 08/24/2025 at 11:25:48 PM PT Interpreting Station ID: [id number]
== END ==
PROVIDERS: PCP Physician Assistant; Referring Provider Physician Assistant; Visit Provider Physician Assistant
DX: Z12.39 Encounter for other screening for malignant neoplasm of breast (principal); R92.323 Mammographic fibroglandular density, bilateral breasts; Z80.3 Family history of malignant neoplasm of breast
CPT/HCPCS: 77049; A9579